=== PATIENT | female | born 1995 | race Caucasian/White ===

== ENCOUNTER 2021-05-24 22:24 | Emergency (ER) | payer OTHER, SELFPAY ==
--- NOTE | ~2021-05-24 | CT_ITS ---
EXAMINATION: CT abdomen pelvis w con EXAM DATE: 05/25/2021 01:51 INDICATION: Epigastric pain X 3 Days. N/V X 4 Hrs. TECHNIQUE: Spiral CT of the abdomen and pelvis was performed following intravenous injection of 100 m L Omnipaque 350. Axial, coronal and sagittal images of the abdomen and pelvis were reviewed. The do se-length product (DLP) for this examination was 633.36 mGy-cm. The exposure was tailored according to patient size (auto mA exposure control), and iterative reconstruction (ASIR) was used as additiona l dose reduction technique. There is no prior study for comparison. FINDINGS: The liver, spleen, adrenal glands and pancreas are unremarkable. Punctate gallbladder calc ification. Gallbladder otherwise unremarkable. Portal and splenic veins are patent. Kidneys enhance symmetrically. There is no hydronephrosis. The uterus is anteverted and morphologically normal. The bladder is unremarkable. There is no retroperitoneal or pelvic lymphadenopathy. Probable identification of a normal appendix. No pericecal inflammation. There are surgical changes from intact gastric bypass surgery. There is expected amount of colonic stool. No free intraperit unger gas. The heart is normal in size. There are no pericardial or pleural effusions. The lung b ases are unremarkable. The bones are unremarkable. IMPRESSION: 1. No acute intra-abdominal findings. 2. Gastric bypass. 3. Punctate cholelithiasis. Reviewed, dictated and finalized at location B.
[2021-05-24 22:32] VITALS: BP 108/76; PULSE 107; RESP 14; TEMP 37.2; O2SAT 98
--- NOTE | 2021-05-24 23:53 | ED.ABDPAIN ---
HPI - Abdominal Pain General Chief Complaint: Abdominal Pain <Zakiya Keyes PA-C - Last Filed: 05/25/21 03:12> Stated Complaint: abdominal pain <Zakiya Keyes PA-C - Last Filed: 05/25/21 03:12> Time Seen by Provider: 05/24/21 23:43 <Zakiya Keyes PA-C - Last Filed: 05/25/21 03:12> History of Present Illness HPI narrative: Patient is a 26-year-old female with a history of gastric bypass surgery for evaluation of epigastric pain, nausea, vomiting x 3 days. She states her pain is constant and severe in nature, and is unrelated to meals. She was able to eat some dinner last night, but has been unable to keep down any p.o. today. States she is vomiting yellow emesis. Reports a history of previous pain and blood in stools, which was previously attributed to gallstones. She still has her gallbladder and appendix. Patient additionally reports 2 episodes of bright red blood in her stools with some blood dripping in the toilet. Denies any pain with defecation. <Zakiya Keyes PA-C - Last Filed: 05/25/21 03:12> Exam Narrative: APPEARANCE: Well appearing, no pain in distress, well-nourished. Head normocephalic and atraumatic. EYES: PERRLA/EOMI, conjunctivae clear NOSE: No nasal drainage EARS: External ear normal in appearance THROAT: Oropharynx is clear. Mucous membranes are moist. NECK: Supple. No adenopathy, no masses. RESPIRATORY: Airway patent, respirations nonlabored. Clear to auscultation bilaterally, no rales, rhonchi, wheezing. CARDIOVASCULAR: Regular rate and rhythm without murmurs, rubs, or gallops. ABDOMINAL: Tenderness palpation in epigastric region with some guarding. Normoactive bowel sounds. : Rectum with good tone. No blood noted, Hemoccult negative. No hemorrhoid or fissure visualized. MUSCULOSKELETAL: Extremities are warm and well-perfused. Moves all extremities well. No edema. NEURO: Normal speech. No focal neurologic deficits. SKIN: Skin is warm and dry. No rashes. PSYCHIATRIC: Normal affect/mood. <Zakiya Keyes PA-C - Last Filed: 05/25/21 03:12> Course [employer]/PA Physician Supervision Patient was seen and evaluated by me. Patient presents emergency room with epigastric pain with associated nausea vomiting. Patient had gastric bypass performed several years ago and lost 125 pounds. Work-up and evaluation is noted. CT the scan of the abdomen showed no complications from gastric bypass. She does have some cholelithiasis but no signs of acute cholecystitis at this time. Patient was given IV fluids in the emergency room. Also gave her some IV Pepcid as well as Zofran to complement what she had already been given by the [facility]. Patient states that this time she feels like she can make it at home as long she has medication to help with the nausea vomiting. <DO Chirag Molina Last Filed: 05/25/21 03:42> Vital Signs Vital signs: Vital Signs Temperature 98.9 F 05/24/21 22:32 Pulse Rate 107 H 05/24/21 22:32 Respiratory Rate 14 05/24/21 22:32 Blood Pressure 108/76 05/24/21 22:32 Pulse Oximetry 98 05/24/21 22:32 Temperature 98.9 F 05/24/21 22:32 Pulse Rate 98 05/25/21 02:17 Respiratory Rate 16 05/25/21 02:17 Blood Pressure 101/62 05/25/21 02:17 Pulse Oximetry 98 05/25/21 02:17 <Zakiya Keyes PA-C - Last Filed: 05/25/21 03:12> Vital Signs Temperature 98.9 F 05/24/21 22:32 Pulse Rate 107 H 05/24/21 22:32 Respiratory Rate 14 05/24/21 22:32 Blood Pressure 108/76 05/24/21 22:32 Pulse Oximetry 98 05/24/21 22:32 Temperature 98.9 F 05/24/21 22:32 Pulse Rate 98 05/25/21 02:17 Respiratory Rate 16 05/25/21 02:17 Blood Pressure 101/62 05/25/21 02:17 Pulse Oximetry 98 05/25/21 02:17 <DO Chirag Molina Last Filed: 05/25/21 03:42> MDM - Abdominal Pain MDM Narrative Medical decision making narrative: 26 year old female here with epigastric pain, blood in s
[2021-05-25 00:11] LABS: Basophils Percent Auto 0.2 % (0.2-1.2); Eosinophils Percent Auto 0.4 % (0-4.4); Hematocrit 42.2 % (37.0-47.0); Hemoglobin 14.2 g/dL (12.0-15.0); Immature Granulocyte Absolute 0.02 K/mm3 (0.00-0.031); Immature Granulocyte Percent A 0.2 % (0-0.5); Lymphocytes Absolute Auto 0.41 K/mm3 (0.9-3.2); Lymphocytes Percent Auto 4.6 % (18.3-44.2); Mean Corpuscular HGB Conc 33.6 g/dl (32-36); Mean Corpuscular Volume 86.3 fl (80-100); Mean Platelet Volume 10.2 fl (7.4-10.4); Monocytes Absolute Auto 0.3 K/mm3 (0.1-0.6); Monocytes Percent Auto 2.9 % (2.6-8.5); Neutrophils Absolute Auto 8.2 K/mm3 (1.3-6.7); Neutrophils Percent Auto 91.7 % (45.5-73.1); Platelet Count Result 214 k/mm3 (150-375); Red Blood Count 4.89 M/mm3 (4.2-5.4); Red Cell Distribution Width 12.2 % (11.5-14.5)
[2021-05-25] MEDS: PROCHLORPERAZINE EDISYLATE 10 MG/2 ML VIAL IV PUSH (00:13)
[2021-05-25] MEDS: SODIUM CHLORIDE 0.9% IV 1,000 ML 999 ML IV CONT (00:13)
[2021-05-25] MEDS: diphenhydrAMINE HCl INJ 50 MG/ML VIAL 25 MG IV PUSH (00:14)
[2021-05-25 00:32] LABS: Alanine Aminotransferase 18 U/L (4-35); Albumin Level 4.7 g/dL (3.5-5.1); Alkaline Phosphatase 75 U/L (38-126); Anion Gap 7 mmol/L (8-16); Aspartate Amino Transferase 32 U/L (14-36); Bilirubin,Total 1.5 mg/dL (0.2-1.3); Blood Urea Nitrogen 21 mg/dL (7-17); Calcium 8.6 mg/dL (8.4-10.2); Carbon Dioxide 23 mmol/L (22-30); Chloride 103 mmol/L (98-107); Estimated CRCL calculation 123 ml/min; Estimated Glomerular Filt Rate > 60; Glucose 125 mg/dL (65-110); Lipase 63 U/L (23-300); Potassium 4.3 mmol/L (3.4-5.0); Sodium 133 mmol/L (137-145)
--- NOTE | 2021-05-25 00:49 | PC.NURSE ---
Pt aware we need urine to get CT.
[2021-05-25 01:04] VITALS: BP 100/60; PULSE 96; RESP 18; O2SAT 96
[2021-05-25 01:41] LABS: Appearance Urine Clear (Clear); Bilirubin Urine Negative (Negative); Blood Urine Trace-lysed (Negative); Color Urine Yellow (Yellow); Glucose Urine UA Negative (Negative); Ketones Urine 4+ mg/dL (Negative); Leukocyte Esterase Ur Negative LEU/UL (Negative); Nitrate Urine Negative (Negative); Protein Urine Negative (Negative); Urobilinogen Urine 0.2 mg/dL (<2.0)
[2021-05-25 01:53] LABS: Bacteria Urine Trace /hpf; Mucus Urine Rare /lpf; Squamous Epithelial Cell Urine Few /hpf (Few); WBC Urine 0-3 /hpf
[2021-05-25 02:00] LABS: Add Urine Microscopic? YES
[2021-05-25 02:17] VITALS: BP 101/62; PULSE 98; RESP 16; O2SAT 98
[2021-05-25] MEDS: ONDANSETRON INJ 4 MG/2 ML VIAL IV PUSH (03:17)
[2021-05-25] MEDS: FAMOTIDINE 20 MG/2 ML VIAL IV PUSH (03:17)
[2021-05-25 03:53] VITALS: BP 105/64; PULSE 95; RESP 16; O2SAT 100
== END 2021-05-25 03:54 | disposition home or self-care (01) ==
PROVIDERS: Physician Assistant; Emergency Provider Emergency Medicine
DX: K29.00 Acute gastritis without bleeding (principal); R11.2 Nausea with vomiting, unspecified; Z98.84 Bariatric surgery status
CPT/HCPCS: 36415; 74177; 80053; 81001; 81025; 83690; 85025; 96361; 96374; 96375; 99284; J0780; J1200; J2405; J7030; Q9967

== ENCOUNTER 2021-10-31 15:21 | Emergency (ER) | payer OTHER, SELFPAY ==
[2021-10-31 15:26] VITALS: BP 105/69; PULSE 80; RESP 16; TEMP 36.9; O2SAT 100
--- NOTE | 2021-10-31 15:32 | ED.HA ---
HPI - Headache General Chief Complaint: Headache Stated Complaint: Headache Time Seen by Provider: 10/31/21 15:25 Source: patient and RN notes reviewed History of Present Illness HPI Narrative: Patient is a 26-year-old female who presents the urgent care with complaints of a migraine headache that is been ongoing since . Patient states that she has been taking too much Fioricet as prescribed by her [employer] and is unable to get a hold of their office. Patient states that she has called them 3 times today without any call back. Patient states that she has now nauseated. States that she has a history of migraine headaches which resolved after gastric and 100 pound weight loss. Patient states that the only issue with this has been the headaches. States that she has been feeling the baby move. Patient is tearful but otherwise no other distress noted. Patient aware of the plan of care. Some parts of this dictation were generated by voice recognition software and may contain typographical and/or grammatical inaccuracies. Related Data Home Medications Medication Instructions Recorded Confirmed nvryiqkcrs-tkqsrtwzyefaj-motxkuzs 1 tablet PO DIRECTED 10/31/21 10/31/21 50 mg-325 mg-40 mg tablet levothyroxine 50 mcg tablet 50 mcg PO DAILY 10/31/21 10/31/21 Allergies Allergy/AdvReac Type Severity Reaction Status Date / Time No Known Allergies Allergy Verified 10/31/21 15:39 Review of Systems Review of Systems: CONSTITUTIONAL: Denies fever, chills, or sweats. EYES: Denies visual changes, redness, or discharge. ENT: Denies rhinorrhea, congestion, sore throat, or otalgia. CARDIOVASCULAR: Denies chest pain, palpitations, or edema. RESPIRATORY: Denies cough or dyspnea. GASTROINTESTINAL: Denies abdominal pain, nausea, vomiting, or diarrhea. GENITOURINARY: Denies dysuria or hematuria. SKIN: Denies rash or itching. MUSCULOSKELETAL: Denies back pain, joint pain, or myalgia. NEUROLOGIC: Reports of a migraine headache All other systems reviewed are negative, except as documented in HPI. Exam Narrative: GENERAL: This is a well-nourished, well-developed patient. Patient is tearful HEAD: normocephalic, atraumatic. EYES: PERRL. Sclera clear/white. Vision is grossly intact. EARS: External ears normal NOSE: External nose normal with no obvious nasal discharge, nares without redness, no rhinorrhea. THROAT: Mucous membranes moist NECK: Neck supple SKIN: warm, intact with no suspicious lesions or rash, good texture and turgor. NEURO: awake, alert, and oriented to person, place and time. There were no obvious focal neurologic abnormalities. EXTREMITIES: No clubbing, cyanosis, or edema. Course Course Level of Care: Express Care Visit Vital Signs Vital signs: Vital Signs Temperature 98.5 F 10/31/21 15:26 Pulse Rate 80 10/31/21 15:26 Respiratory Rate 16 10/31/21 15:26 Blood Pressure 105/69 10/31/21 15:26 Pulse Oximetry 100 10/31/21 15:26 Oxygen Delivery Room Air 10/31/21 15:26 Temperature 98.5 F 10/31/21 15:26 Pulse Rate 80 10/31/21 15:26 Respiratory Rate 16 10/31/21 15:26 Blood Pressure 105/69 10/31/21 15:26 Pulse Oximetry 100 10/31/21 15:26 Oxygen Delivery Room Air 10/31/21 15:26 Reviewed MDM - Headache MDM Narrative Medical decision making narrative: Spoke to the patient regarding when to go to the emergency room such as increased nausea, vomiting, changes in vision or increase in pain. Would advise continuing a cold compress and Tylenol as needed. Make sure not to overdo the Fioricet. Increase your water intake and rest. Advise calling your [employer] again for further evaluation. Patient did agree to go to [facility] until she was told that there was a 6-hour wait in the waiting room. Patient does not need emergent transfer to the ER and therefore will not require signing out AGAINST MEDICAL ADVICE. Advised the patient to increase her water intake and use a cool
== END 2021-10-31 16:15 | disposition home or self-care (01) ==
PROVIDERS: Emergency Provider Nurse Practitioner Family; PCP Nurse Practitioner Family
DX: R51.9 Headache, unspecified (principal)
CPT/HCPCS: 99213; G0463

== ENCOUNTER 2023-01-01 17:56 | Emergency (ER) | payer BC, SELFPAY ==
--- NOTE | ~2023-01-01 | XR_ITS ---
EXAMINATION: XR chest 2V DATE: 01/01/2023 18:15 INDICATION: Dry cough TECHNIQUE: PA and lateral views of the chest are obtained. COMPARISON: None available FINDINGS: The lungs are free of acute opacities. No pleural effusion or pneumothorax. The cardiomedia stinal silhouette is normal. The visualized bones and soft tissues are unremarkable. IMPRESSION: 1. No acute cardiopulmonary abnormality. Reviewed, dictated and finalized at location F. [facility]
[2023-01-01 18:01] VITALS: BP 109/75; PULSE 80; RESP 18; TEMP 37.2; O2SAT 99
--- NOTE | 2023-01-01 18:20 | ED.URI ---
HPI - URI/Sore Throat General Chief Complaint: Upper Respiratory Infection Stated Complaint: Cough Time Seen by Provider: 01/01/23 18:20 Source: patient Mode of arrival: ambulatory Limitations: no limitations History of Present Illness HPI Narrative: 27-year-old female presents with complaint of cough, postnasal drainage for 1 month. Using albuterol inhaler with [id number] Mucinex DM. Is done virtual visit with a doctor and given benzonatate which did not help cough. Has not been able to get in to see primary care physician. No chest pain or shortness of breath. Cough worse at night and in the morning. States that cough started out dry and is now wet. Taking Mucinex but feels like drainage days and throat and lungs and not coming up. Patient actively coughing an exam room. No respiratory distress. Patient takes Zyrtec and nasal spray daily. All systems reviewed and negative except as noted above. Related Data Home Medications Medication Instructions Recorded Confirmed jaieilojje-xllygrzawaogc-habbisea 1 tablet PO DIRECTED 10/31/21 01/01/23 50 mg-325 mg-40 mg tablet levothyroxine 50 mcg tablet 50 mcg PO DAILY 10/31/21 01/01/23 Allergies Allergy/AdvReac Type Severity Reaction Status Date / Time No Known Allergies Allergy Verified 10/31/21 15:39 Review of Systems Review of Systems: CONSTITUTIONAL: Denies fever, chills, or sweats. EYES: Denies visual changes, redness, or discharge. ENT: Denies rhinorrhea, congestion, sore throat, or otalgia. Reports postnasal drainage. CARDIOVASCULAR: Denies chest pain, palpitations, or edema. RESPIRATORY: Reports cough. Denies dyspnea. GASTROINTESTINAL: Denies abdominal pain, nausea, vomiting, or diarrhea. GENITOURINARY: Denies dysuria or hematuria. SKIN: Denies rash or itching. MUSCULOSKELETAL: Denies back pain, joint pain, or myalgia. NEUROLOGIC: Denies headache, numbness, or weakness. PSYCHIATRIC: Denies anxiety or depression. All other systems reviewed are negative, except as documented in HPI. PMFSH Comments At time of signature, agree with nursing past medical, surgical, social and family history. There is no relevant family history pertinent to the presenting complaint. Exam Narrative: GENERAL: This is a well-nourished, well-developed patient, in no apparent distress. HEAD: normocephalic, atraumatic. EYES: PERRL. Sclera clear/white. Vision is grossly intact. EARS: External ears normal, auditory canals clear and without drainage, TMs normal without perforation. Hearing grossly intact. NOSE: External nose normal with no obvious nasal discharge, nares without redness, no rhinorrhea. THROAT: Mucous membranes moist, mild erythema to posterior pharynx with postnasal drainage. NECK: Neck supple, non-tender without lymphadenopathy, masses or thyromegaly. CARDIOVASCULAR: Regular rate and rhythm without murmurs, gallops, or rubs. RESPIRATORY: Wheezing mild at end of inspiration throughout lung daley. Breath sounds equal bilaterally. No rales, or rhonchi. SKIN: warm, Dry, intact with no suspicious lesions or rash, good texture and turgor. NEURO: awake, alert, and oriented to person, place and time. There were no obvious focal neurologic abnormalities. EXTREMITIES: No joint tenderness, effusion, or edema noted. Course Course Level of Care: Express Care Visit Vital Signs Vital signs: Vital Signs Temperature 37.2 C 01/01/23 18:01 Pulse Rate 80 01/01/23 18:01 Respiratory Rate 18 01/01/23 18:01 Blood Pressure 109/75 01/01/23 18:01 Pulse Oximetry 99 01/01/23 18:01 Oxygen Delivery Room Air 01/01/23 18:01 Temperature 37.2 C 01/01/23 18:01 Pulse Rate 80 01/01/23 18:01 Respiratory Rate 18 01/01/23 18:01 Blood Pressure 109/75 01/01/23 18:01 Pulse Oximetry 99 01/01/23 18:01 Oxygen Delivery Room Air 01/01/23 18:01 Reviewed MDM - URI/Sore Throat MDM Narrative Medical decision making narrative: Patient
== END 2023-01-01 18:39 | disposition home or self-care (01) ==
PROVIDERS: Emergency Provider Nurse Practitioner Family; PCP Nurse Practitioner Family
DX: J01.90 Acute sinusitis, unspecified (principal); B96.89 Other specified bacterial agents as the cause of diseases classified elsewhere; R05.1 Acute cough; Z79.899 Other long term (current) drug therapy
CPT/HCPCS: 71046; 99213; G0463

== ENCOUNTER 2023-04-03 11:00 | Emergency (ER) | payer BC, SELFPAY ==
[2023-04-03 11:04] VITALS: BP 109/64; PULSE 78; RESP 20; TEMP 36.4; O2SAT 98
--- NOTE | 2023-04-03 11:59 | ED.GENADULT ---
HPI - General Adult General Chief complaint: Unspecified Stated complaint: flu symptoms Time Seen by Provider: 04/03/23 12:00 Source: patient, RN notes reviewed and old records reviewed Mode of arrival: ambulatory Limitations: no limitations History of Present Illness HPI narrative: 28-year-old female who presents to [facility] with complaints of 2 day history of body aches, fatigue,headache, nausea and vomiting, fevers up to 102F. Patient reports that she has been taking Tylenol for her discomfort, takes Zofran when she has migraines but left it at wor, requesting another script. Patient reports that she has been COVID vaccinated and also has had flu shot.Patient states that headache is not like her normal migraines. MD complaint: fatigue, body aches, vomiting fever up to 102F headaches Onset (ago): day(s) (2) Severity scale (1-10): 3 Treatments prior to arrival: other (Tylenol) Related Data Home Medications Medication Instructions Recorded Confirmed levothyroxine 50 mcg tablet 50 mcg PO DAILY 10/31/21 04/03/23 buspirone 7.5 mg tablet 7.5 mg PO BID 04/03/23 04/03/23 ondansetron HCl 4 mg tablet 4 mg PO Q6H PRN migraines 04/03/23 04/03/23 propranolol 20 mg tablet 20 mg PO DAILY 04/03/23 04/03/23 Allergies Allergy/AdvReac Type Severity Reaction Status Date / Time No Known Allergies Allergy Verified 04/03/23 11:17 Review of Systems Review of Systems: CONSTITUTIONAL:Reports malaise, chills, sweats, or fever. EYES: Denies visual changes, redness, or discharge. ENT: Reports rhinorrhea, congestion,no sinus pain,no otalgia and no sore throat. CARDIOVASCULAR: Denies chest pain, palpitations, or edema. RESPIRATORY: Reports no acute cough.? Denies dyspnea. GASTROINTESTINAL: Denies abdominal pain, positive for nausea, vomiting, no diarrhea SKIN: Denies rash or itching. MUSCULOSKELETAL: Denies myalgia. NEUROLOGIC: Reports headache. All systems reviewed & are unremarkable except as noted in HPI and below PMFSH Past Medical History Medical History (Updated 04/04/23 @ 12:48 by Kenzie Gil NP) Anxiety Hypothyroidism Migraine Social History Social History (Updated 04/04/23 @ 12:44 by SHAWN Doherty Smoking status: Never smoker Alcohol intake: current Alcohol use details: rare social Substance use type: does not use Living arrangements: with family Gender identity (if verbalized by the patient): Female Comments At time of signature, agree with nursing past medical, surgical, social and family history. There is no relevant family history pertinent to the presenting complaint Exam Narrative: GENERAL: Well-appearing, well-nourished, and in no acute distress. HEAD: Normocephalic EYES: PERRLA, conjunctivae clear ENT: Nares clear, turbinates edematous and erythematous, clear discharge. Mucous membranes moist. TM pearly eisenberg with dull light reflex bilaterally; no tragal tenderness. Oropharynx erythematous without lesions. Tonsils not enlarged and without exudate, no drooling, no hoarseness, no trismus, uvula midline. NECK: Supple. No lymphadenopathy CHEST: Clear to auscultation, breath sounds equal. No wheezing, rhonchi, rales, or stridor. No respiratory distress, speaks in full sentences.[id number]% on room air HEART: Regular rate and rhythm. No murmur heard. SKIN: Warm, dry, no rash. NEURO: Alert and oriented x3. headache pain PSYCH: Normal mood and affect Course Course Emergency Course: Patient is aware of diagnosis, understands and agrees to treatment plan.? Anticipatory guidance given.? Patient agrees to follow-up as directed and is aware of reasons to seek care at the emergency department. Portions of this record may have been created with voice recognition software Level of Care: Express Care Visit Vital Signs Vital signs: Vital Signs Temperature 36.4 C 04/03/23 11:04 Pulse Rate 78 04/03/23 11:04 Respiratory Rate 20 04/03/23 11:04
== END 2023-04-03 12:15 | disposition home or self-care (01) ==
PROVIDERS: Emergency Provider Registered Nurse; PCP Nurse Practitioner Family
DX: J06.9 Acute upper respiratory infection, unspecified (principal); R11.2 Nausea with vomiting, unspecified; Z20.822 Contact with and (suspected) exposure to COVID-19; E03.9 Hypothyroidism, unspecified; F41.9 Anxiety disorder, unspecified
CPT/HCPCS: 87426; 87804; 99213; G0463